=== PATIENT | male | born 1995 | race Two or more races ===

== ENCOUNTER → 2019-07-04 | Emergency (ER) | payer MEDICAID ==
[~2019-07-04] VITALS: Ht 180.3 cm; Wt 76.0 kg
[2019-07-04 15:32] VITALS: BP 110/60
== END | disposition home or self-care (01) ==
LOC: ER 12:19
DX: Z20.2 Contact with and (suspected) exposure to infections with a predominantly sexual mode of transmission (principal); L73.8 Other specified follicular disorders
CPT/HCPCS: 99283

== ENCOUNTER 2021-03-26 07:39 | Emergency (ER) | payer MEDICAID ==
[~2021-03-26] VITALS: Ht 180.3 cm; Wt 120.0 kg
[2021-03-26] MEDS ORDERED: DICYCLOMINE 10 MG/5 ML ORAL SYR PO STA (08:01)
[2021-03-26] MEDS ORDERED: ONDANSETRON 4MG ODT PO STA (08:01)
[2021-03-26] MEDS ORDERED: MAGNESIUM/ALUMINUM HYDROXIDE/SIMETHICONE 30ML UDC PO STA (08:01)
[2021-03-26 08:34] LABS: CLARITY URINE CLEAR (CLEAR); COLOR URINE YELLOW (YELLOW); KETONES URINE NEGATIVE (NEGATIVE); LEUKOCYTE ESTERASE URINE NEGATIVE (NEGATIVE); NITRITE URINE NEGATIVE (NEGATIVE); OCCULT BLOOD URINE 2+ (NEGATIVE); PROTEIN URINE NEGATIVE (NEGATIVE); UROBILINOGEN URINE 0.2 E.U./dL (0.2-1.0)
[2021-03-26 08:35] LABS: BASOPHILS % 0.7 % (0.0-2.0); EOSINOPHILS % 5.7 % (0.0-5.0); HEMATOCRIT. 46.4 % (42.0-52.0); HEMOGLOBIN. 15.6 g/dL (14.0-18.0); LYMPHOCYTES % 27.3 % (20.0-50.0); MEAN CORPUSCULAR HEMOGLOBIN 29.7 pg (28.0-32.0); MEAN CORPUSCULAR VOLUME 88.5 fL (80.0-94.0); MEAN PLATELET VOLUME 9.2 fl (7.4-10.4); MONOCYTES % 8.2 % (2.0-8.0); NEUTROPHILS % 58.1 % (40.0-76.0); PLATELET 190 x1000/uL (130-400); RED BLOOD CELL COUNT 5.24 mill/uL (4.7-6.1); RED CELL DISTRIBUTION WIDTH 13.3 % (11.6-14.6)
[2021-03-26 08:44] LABS: CHLORIDE 106 mEq/L (98-107)
[2021-03-26] MEDS ORDERED: ONDA4TAB5 MT (10:09)
[2021-03-26 10:36] VITALS: BP 127/83
== END 2021-03-26 10:39 | disposition home or self-care (01) ==
LOC: ER 07:39
DX: R10.9 Unspecified abdominal pain (principal)
CPT/HCPCS: 36415; 74018; 80053; 81003; 83690; 85025; 99284; Q0162